=== PATIENT | female | born 1965 | race Caucasian/White ===

== ENCOUNTER 2017-09-07 11:39 | Emergency (ER) | payer BC ==
[~2017-09-07] VITALS: Ht 160 cm; Wt 139.9 kg
[~2017-09-07 11:39] MED LIST: LOSA1TAB41 PO; PHEN37.54 PO; SERT50TA10 PO
[2017-09-07 13:53] VITALS: BP 145/89
== END 2017-09-07 13:55 | disposition home or self-care (01) ==
LOC: ER 11:40
DX: S00.03XA Contusion of scalp, initial encounter (principal); S09.90XA Unspecified injury of head, initial encounter; K21.9 Gastro-esophageal reflux disease without esophagitis; G89.29 Other chronic pain; G47.30 Sleep apnea, unspecified; Z98.890 Other specified postprocedural states; Z79.899 Other long term (current) drug therapy; Z88.1 Allergy status to other antibiotic agents; Z91.040 Latex allergy status; W22.8XXA Striking against or struck by other objects, initial encounter; Y93.89 Activity, other specified; Y92.89 Other specified places as the place of occurrence of the external cause; Y99.9 Unspecified external cause status
CPT/HCPCS: 70450; 99284

== ENCOUNTER 2017-10-06 05:28 | Day surgery (SDC) | payer BC ==
[2017-09-30 11:24] LABS: BASOPHILS % (AUTO) 0.6 % (0-1); EOSINOPHILS # (AUTO) 0.4 X10'3 (0-0.9); EOSINOPHILS % (AUTO) 5.4 % (0-6); LYMPHOCYTES # (AUTO) 2.1 X10'3 (1.1-4.8); LYMPHOCYTES % (AUTO) 28.9 % (21-51); MEAN CORPUSCULAR VOLUME 84.9 FL (78-98); MEAN PLATELET VOLUME 9.3 FL (7.4-10.4); MONOCYTES # (AUTO) 0.5 X10'3 (0-0.9); MONOCYTES % (AUTO) 7.5 % (2-12); NEUTROPHILS # (AUTO) 4.1 X10'3 (1.8-7.7); NEUTROPHILS % (AUTO) 57.6 % (42-75); PRE OP HEMATOCRIT 44.5 % (35.0-45.0); PRE OP HEMOGLOBIN 14.7 g/dL (12.0-16.0); PRE OP PLATELET COUNT 225 X10'3 (140-440); RED BLOOD COUNT 5.24 X10'6 (4.20-5.60); RED CELL DISTRIBUTION WIDTH 14.9 % (11.5-14.5)
[2017-09-30 11:45] LABS: ALBUMIN 3.8 G/DL (3.4-5.0); ALKALINE PHOSPHATASE 77 IU/L (46-116); BLOOD UREA NITROGEN 19 MG/DL (7-18); BUN/CREATININE RATIO 17.4 (6.6-38.0); CALCIUM 9.4 MG/DL (8.5-10.1); CHLORIDE 104 MMOL/L (99-107); CREATININE 1.09 MG/DL (0.40-0.90); PRE OP ALT 26 U/L (30-65); PRE OP ANION GAP 9 (8-16); PRE OP AST 15 U/L (10-37); PRE OP BILIRUB, TOTAL 0.3 MG/DL (0.0-1.0); PRE OP GLUCOSE 98 MG/DL (70-104); PRE OP POTASSIUM 3.8 MMOL/L (3.4-5.1); PRE OP SODIUM 141 MMOL/L (135-145); TOTAL CARBON DIOXIDE 28.4 MMOL/L (24-32); TOTAL PROTEIN 7.7 G/DL (6.4-8.2); eGFR 53 ML/MIN
[2017-10-06] VITALS (10 sets, daily range): BP systolic 120–162; BP diastolic 79–106
[~2017-10-06] VITALS: Ht 162.6 cm; Wt 138.9 kg
[~2017-10-06 05:28] MED LIST changes: -SERT50TA10 PO; +ringers solution, lacted 1,000 ML IV SCH
[2017-10-06] MEDS ORDERED: Cefazolin 2GM/50ML dext iso,osmotic IVPB IV ONE (05:30)
[2017-10-06] MEDS ORDERED: famotidine 20mg tablet PO ONE (05:30)
[2017-10-06] MEDS ORDERED: scopolamine 1.5mg patch.TD72 TD ONE (05:30)
[2017-10-06] MEDS ORDERED: LIDOcaine 1% (10mg/ml) 2ml vial ONE (05:43)
[2017-10-06] MEDS ORDERED: cloNIDine hcl/PF 100mcg/ml inj ONE (07:08)
[2017-10-06] MEDS ORDERED: ROPIVAcaine 0.5% (5mg/ml) 30ml vial ONE (07:08)
[2017-10-06] MEDS ORDERED: acetaminophen 1,000mg/100ml IV 100 ML IV ONE (07:08)
[2017-10-06] MEDS ORDERED: sevoflurane 250ml liquid IH ONE (07:09)
[2017-10-06] MEDS ORDERED: fentaNYL/PF 50MCG/1 ML 2ML syringe ONE ×2 (07:10→08:34)
[2017-10-06] MEDS ORDERED: MIDAZolam 5mg/5ml vial ONE (07:11)
[2017-10-06] MEDS ORDERED: propofol inj 20 ML IV ONE ×2 (07:11)
[2017-10-06] MEDS ORDERED: LIDOcaine 2% (20mg/ml) 5ml vial ONE (07:11)
[2017-10-06] MEDS ORDERED: ondansetron/PF 4mg/2ml inj ONE (07:12)
[2017-10-06] MEDS ORDERED: dexamethasone sod phosphate 4mg/ml inj. ONE (07:12)
[2017-10-06] MEDS ORDERED: ketorolac trometh. 30mg/ml inj. ONE (07:13)
[2017-10-06] MEDS ORDERED: ringers solution, lacted 1,000 ML IV SCH (07:18)
[2017-10-06] MEDS ORDERED: morphine 4 MG/ML inj SYRINge IV PRN ×2 (07:20)
[2017-10-06] MEDS ORDERED: ondansetron/PF 4mg/2ml inj IV PRN (07:20)
[2017-10-06] MEDS ORDERED: labetalol 20mg/4ml (5mg/ml) syringe IV PRN (07:20)
[2017-10-06] MEDS ORDERED: fentaNYL/PF 50MCG/1 ML 2ML syringe IV PRN (07:20)
[2017-10-06] MEDS ORDERED: hydrALAZINE 20mg/ml inj. IV PRN (07:20)
[2017-10-06] MEDS ORDERED: HYDROcodone/acetaminophen 10/325mg tab PO PRN (09:10)
[2017-10-06] MEDS: fentaNYL/PF 50MCG/1 ML 2ML syringe IV PRN ×2 (09:22→09:33)
== END 2017-10-06 10:05 | disposition home or self-care (01) ==
LOC: PAS 05:28
PROVIDERS: ATTEND Orthopaedic Surgery
DX: S83.012A Lateral subluxation of left patella, initial encounter (principal); E66.01 Morbid (severe) obesity due to excess calories; I25.2 Old myocardial infarction; G47.33 Obstructive sleep apnea (adult) (pediatric); I10 Essential (primary) hypertension; K21.9 Gastro-esophageal reflux disease without esophagitis; F41.8 Other specified anxiety disorders; G89.18 Other acute postprocedural pain; M19.90 Unspecified osteoarthritis, unspecified site; Z91.040 Latex allergy status; Z88.1 Allergy status to other antibiotic agents; Z68.43 Body mass index [BMI] 50.0-59.9, adult; Z79.891 Long term (current) use of opiate analgesic; Z79.899 Other long term (current) drug therapy; Z98.890 Other specified postprocedural states; W22.8XXA Striking against or struck by other objects, initial encounter; Y93.89 Activity, other specified; Y92.89 Other specified places as the place of occurrence of the external cause; Y99.8 Other external cause status
CPT/HCPCS: 27422; 36415; 64447; 80053; 85025; 93005; A6255; C1713; J0131; J0690; J0735; J1100; J1885; J2001; J2250; J2270; J2405; J2704; J2795; J3010; J3490; J7030; J7120; A7000